=== PATIENT | female | born 2005 | race Hispanic/Latino ===

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

== ENCOUNTER 2024-06-02 21:49 | Emergency (ER) | payer SELFPAY ==
[2024-06-02 21:52] VITALS: BP 148/83; PULSE 122; RESP 14; TEMP 36.1; O2SAT 98
--- NOTE | 2024-06-02 22:54 | PC.NURSE ---
Pt approached nurses station stating she is leaving the ER. Pt is [id number] with a steady gait.
== END 2024-06-02 23:03 | disposition left against medical advice (07) ==
DX: R11.2 Nausea with vomiting, unspecified (principal)
CPT/HCPCS: 99199